=== PATIENT | male | born 1975 | race Caucasian/White ===

== ENCOUNTER 2017-05-02 16:35 | Emergency (ER) | payer SELFPAY ==
[2017-05-02] MEDS ORDERED: Tetracaine 0.5% OPTH.SOL 4 ML* 1 DROP BTL RIGHT EYE ONE (16:41)
[2017-05-02] MEDS ORDERED: BSS OPTH.SOL* BTL OPHTHALMIC ONE (16:42)
[2017-05-02] MEDS ORDERED: Fluorescein Sodium TOPICAL* 1 MG TEST OPHTHALMIC ONE (16:43)
[2017-05-02 16:46] VITALS: BP 111/71
--- NOTE | 2017-05-02 16:48 | UC ---
Eye Complaint HPI - HPI Summary HPI Summary: patient was doing some work around the house, felt something in his eye, flushed it out, but still has a constant irritation in the right eye. - History of Current Complaint Stated Complaint: RIGHT EYE Time Seen by Provider: 05/02/17 16:37 Hx Obtained From: Patient Onset/Duration: Sudden Onset, Lasting Days Timing: Constant Severity Initially: Severe Severity Currently: Moderate Location of Injury: Sclera Character: Dull, Foreign Body Sensation Aggravating Factor(s): Light, Eye Drops Alleviating Factor(s): Nothing Associated Signs And Symptoms: Positive: Negative, Drainage (Clear) Related History: Foreign Body - Risk Factors Penetrating Injury Risk Factor: Projectile Globe Rupture Risk Factors: Negative Acute Glaucoma Risk Factors: Eye Inflammation Optic Artery Occlusion Risk Factors: Negative - Allergies/Home Medications Allergies/Adverse Reactions: Allergies Allergy/AdvReac Type Severity Reaction Status Date / Time LOCAL ANESTHETIC Allergy Intermediate Vomiting Uncoded 05/02/17 16:46 Home Medications: Home Medications Levocetirizine Dihydrochloride [Xyzal Allergy 24Hr] 5 mg PO DAILY 05/02/17 [ History Confirmed 05/02/17] PMH/Surg Hx/FS Hx/Imm Hx Previously Healthy: Yes - Surgical History Surgical History: Yes Surgery Procedure, Year, and Place: APPENDECTOMY, LEFT KNEE AND LEFT SHOULDER ARTHOSCOPY, heart cath that was negative - Family History Known Family History: Positive: Other - positive [facility] for arthralgia - Social History Alcohol Use: Rare Substance Use Type: None Smoking Status (MU): Light Every Day Tobacco Smoker Type: Cigarettes Amount Used/How Often: 1/4 ppd Review of Systems Constitutional: Negative Skin: Negative Eyes: Drainage, Eye Redness, Photophobia ENT: Negative Respiratory: Negative Cardiovascular: Negative Gastrointestinal: Negative Genitourinary: Negative Motor: Negative Neurovascular: Negative Musculoskeletal: Negative Neurological: Negative Psychological: Negative All Other Systems Reviewed And Are Negative: Yes Physical Exam Triage Information Reviewed: Yes Appearance: Well-Appearing, Well-Nourished, Pain Distress Vital Signs Reviewed: Yes Eye Exam: Normal ENT Exam: Normal Dental Exam: Normal Neck exam: Normal Respiratory Exam: Normal Cardiovascular Exam: Normal Cardiovascular: Positive: RRR, No Murmur, Pulses Normal Abdominal Exam: Normal Bowel Sounds: Positive: Present Musculoskeletal Exam: Normal Neurological Exam: Normal Psychological Exam: Normal Skin Exam: Normal Eye Complaint Course/Dx - Course Course Of Treatment: hx obtained, exam performed ,meds reviewed, eye exam performed small corneal abraision noted, abx prescribed. - Differential Dx/Diagnosis Differential Diagnosis/HQI/PQRI: Corneal Abrasion, Penetrating Injury, Periorbital Cellulitis, Orbital Cellulitis Provider Diagnoses: corneal abrasion of right eye Discharge - Discharge Plan Condition: Stable Disposition: HOME Prescriptions: Erythromycin OPHTH.OINT* [Ilotycin OPHTH.OINT*] 1 applic RIGHT EYE TID #1 tube Patient Education Materials: Corneal Abrasion (ED) Additional Instructions: 1. use the eye cream as prescribed. 2.if not improving follow up with Dr Mayes.
== END 2017-05-02 17:17 | disposition home or self-care (01) ==
LOC: UCCORT 16:35
DX: S05.01XA Injury of conjunctiva and corneal abrasion without foreign body, right eye, initial encounter (principal); Z72.0 Tobacco use
CPT/HCPCS: 99212; A9270-GY; G0463

== ENCOUNTER 2017-05-03 18:17 | Emergency (ER) | payer SELFPAY ==
--- NOTE | 2017-05-03 18:52 | UC ---
Eye Complaint HPI - HPI Summary HPI Summary: 41 YEAR OLD MALE RETURNS WITH COMPLAINS OF SEVERE RIGHT EYE PAIN/DECREASED VISION. I WILL SEND HIM TO [facility]. - History of Current Complaint Stated Complaint: EYE PAIN Time Seen by Provider: 05/03/17 18:51 - Allergies/Home Medications Allergies/Adverse Reactions: Allergies Allergy/AdvReac Type Severity Reaction Status Date / Time LOCAL ANESTHETIC Allergy Intermediate Vomiting Uncoded 05/03/17 19:00 Home Medications: Home Medications Acetaminophen [Eq Acetaminophen] 1,000 mg PO Q8H PRN 05/03/17 [History Confirmed 05/03/17] PMH/Surg Hx/FS Hx/Imm Hx - Surgical History Surgical History: Yes Surgery Procedure, Year, and Place: APPENDECTOMY, LEFT KNEE AND LEFT SHOULDER ARTHOSCOPY, heart cath that was negative - Family History Known Family History: Positive: Other - positive [facility] for arthralgia - Social History Alcohol Use: Rare Substance Use Type: None Smoking Status (MU): Light Every Day Tobacco Smoker Type: Cigarettes Amount Used/How Often: 1/4 ppd Length of Time of Smoking/Using Tobacco: since age 16 Review of Systems Constitutional: Negative Skin: Negative Eyes: Blurred Vision, Photophobia ENT: Negative Respiratory: Negative Cardiovascular: Negative Gastrointestinal: Negative Genitourinary: Negative Motor: Negative Neurovascular: Negative Musculoskeletal: Negative Neurological: Negative Psychological: Negative All Other Systems Reviewed And Are Negative: Yes Physical Exam Triage Information Reviewed: Yes Eye Exam: Normal Eyes: Positive: Conjunctiva Inflamed Dental Exam: Normal Neck exam: Normal Neck: Positive: 1 Respiratory Exam: Normal Cardiovascular Exam: Normal Abdominal Exam: Normal Musculoskeletal Exam: Normal Neurological Exam: Normal Psychological Exam: Normal Skin Exam: Normal Eye Complaint Course/Dx - Differential Dx/Diagnosis Provider Diagnoses: CHANGE OF VISION. RIGHT EYE PAIN. RIGHT EYE PHOTOPHOBIA Discharge - Discharge Plan Condition: Stable Disposition: HOME Patient Education Materials: Blurred Vision (ED) Referrals: No Primary Care Phys,NOPCP [Primary Care Provider] -
[2017-05-03 19:08] VITALS: BP 119/72
== END 2017-05-03 19:32 | disposition home or self-care (01) ==
LOC: UCCORT 18:17
DX: H53.9 Unspecified visual disturbance (principal); H57.11 Ocular pain, right eye; H53.141 Visual discomfort, right eye; Z72.0 Tobacco use
CPT/HCPCS: 99213; G0463

== ENCOUNTER 2019-01-07 16:56 | Emergency (ER) | payer SELFPAY ==
[2019-01-07 17:35] VITALS: BP 125/80
--- NOTE | 2019-01-07 17:55 | UC ---
Shoulder Pain HPI - HPI Summary HPI Summary: 43-year-old male comes in with a chief complaint of right shoulder pain. Patient woke up with pain 3 days ago. It's in the upper posterior chest and the trapezius muscle area over the scapula. He noticed some bruising on the skin there and pain. Pain is worse with range of motion of the shoulder. Denies any neck pain. Denies any weakness. Occasionally he is getting some tingling down the right arm into the hand. No known trauma. No shortness of breath or fevers. The bruising rash is gone away. It never had any vesicles or drainage. Ibuprofen was initially helping with the pain but is no longer helping. When he moves the shoulder he does feel some crackling in the muscles. - History of Current Complaint Chief Complaint: UCUpperExtremity Stated Complaint: RT SHOULDER COMPLAINT Time Seen by Provider: 01/07/19 17:34 Pain Intensity: 8 - Allergies/Home Medications Allergies/Adverse Reactions: Allergies Allergy/AdvReac Type Severity Reaction Status Date / Time LOCAL ANESTHETIC Allergy Intermediate Vomiting Uncoded 01/07/19 17:25 Home Medications: Home Medications Ibuprofen TAB* [Motrin TAB* 800 MG] 800 mg PO Q6H PRN 01/07/19 [History Confirmed 01/07/19] PMH/Surg Hx/FS Hx/Imm Hx Previously Healthy: Yes - Surgical History Surgical History: Yes Surgery Procedure, Year, and Place: APPENDECTOMY, LEFT KNEE AND LEFT SHOULDER ARTHOSCOPY, heart cath that was negative - Family History Known Family History: Positive: Other - positive [facility] for arthralgia - Social History Alcohol Use: Rare Substance Use Type: None Smoking Status (MU): Light Every Day Tobacco Smoker Type: Cigarettes Amount Used/How Often: 1/4 ppd Length of Time of Smoking/Using Tobacco: since age 16 Review of Systems All Other Systems Reviewed And Are Negative: Yes Constitutional: Positive: Negative Skin: Positive: Rash Eyes: Positive: Negative ENT: Positive: Negative Respiratory: Positive: Negative Cardiovascular: Positive: Negative Gastrointestinal: Positive: Negative Motor: Positive: Negative Neurovascular: Positive: Negative Musculoskeletal: Positive: Other: - SEE HPI Neurological: Positive: Numbness Psychological: Positive: Negative Is Patient Immunocompromised?: No Physical Exam Triage Information Reviewed: Yes Appearance: Well-Appearing, Well-Nourished, Pain Distress - MILD WITH RT SHOULDER ROM Vital Signs: Initial Vital Signs Temp 100.1 F 01/07/19 17:28 Pulse 76 01/07/19 17:28 Resp 16 01/07/19 17:28 BP 125/80 01/07/19 17:28 Pulse Ox 100 01/07/19 17:28 Vital Signs Reviewed: Yes Eye Exam: Normal Eyes: Positive: Conjunctiva Clear Neck exam: Normal Neck: Positive: Supple, Nontender Respiratory: Positive: Lungs clear, Normal breath sounds, No respiratory distress Cardiovascular: Positive: RRR Musculoskeletal: Positive: Other: - Radial pulses normal bilaterally. Normal capillary refill in the hands. No sensation deficit in the arms. Fingers wrists and elbows have full range of motion with strength 5 out of 5. Shoulder extension 90 on the right 160 on the left. Abduction 70 on the right 150 on the left. Internal rotation T6 on the left T12 on the right. Neurological Exam: Normal Neurological: Positive: Alert, Muscle Tone Normal Psychological Exam: Normal Psychological: Positive: Age Appropriate Behavior Skin Exam: Normal Skin: Negative: Rashes Shoulder Course/Dx - Course Course Of Treatment: Patient Name: ROMMEL LAWSON Medical Record#: [id number] Ordering Physician: Chung Michael MD Acct.#: [id number] : 1975 Age: 43 Sex: M Location: [facility] Exam Date: 01/07/191747 ADM Status: REG ER Order Information: SHOULDER RIGHT 2+ VWS Accession Number: [id number] CPT: 03535 INDICATION: Right shoulder pain. TECHNIQUE: 4 views of the right shoulder were obtained. FINDINGS: The bones are in normal alignment. No fracture is seen. Joint spaces appear maintained. IMPRESSION: NO EVIDENCE OF FRACTURE. <Electronically signed by Eleuterio Bojorquez MD in OV> 01/07/191817 Order Information: CHEST PA LAT 2 VWS Accession Number: [id number] CPT: 22930 INDICATION: Right upper chest pain. COMPARISON: There are no relevant prior studies available for comparison. TECHNIQUE: Dual-energy PA and lateral views of the chest were obtained. FINDINGS: The heart is within normal limits in size. Mediastinal and hilar contours appear within normal limits. The lungs are slightly hyperinflated and clear. No pneumothorax or pleural effusion is seen. IMPRESSION: NO EVIDENCE FOR ACTIVE CARDIOPULMONARY DISEASE. I discussed the x-rays with the patient. Patient will continue ibuprofen. I recommended ice. Patient reports that when he holds the arm close to him it does help decrease the pain and therefore nursing here gave him a sling and is neurovascularly intact after placement of the sling. We did discuss discussed getting his arm out of the sling as much as possible and doing range of motion to avoid frozen shoulder. Also prescription for Flexeril and [place] to be used as needed. Plan is to follow-up with orthopedics or sports medicine. - Differential Dx/Diagnosis Provider Diagnosis: Right shoulder pain Discharge - Sign-Out/Discharge Documenting (check all that apply): Patient Departure All imaging exams completed and their final reports reviewed: Yes - Discharge Plan Condition: Stable Disposition: HOME Prescriptions: Cyclobenzaprine TAB* [Flexeril 10 MG TAB*] 10 mg PO TID PRN #15 tab MDD 3 PRN Reason: Pain HYDROcodone/ACETAMIN 5-325 MG* [[place] 5-325 TAB*] 1 tab PO Q4H PRN #30 tab MDD 6 PRN Reason: Pain Patient Education Materials: Shoulder Pain (ED) Referrals: Aureliano Ta MD [Medical Doctor] - [facility] [Provider Group] Additional Instructions: FOLLOW UP WITH ORTHOPEDICS OR SPORTS MEDICINE. CONTINUE RANGE OF MOTION EXERCISES TO AVOID FROZEN SHOULDER. GET REEVALUATED SOONER FOR ANY WORSENING OF YOUR CONDITION OR ANY QUESTIONS OR CONCERNS. - Billing Disposition and Condition Condition: STABLE Disposition: Home
== END 2019-01-07 18:45 | disposition home or self-care (01) ==
LOC: UCCORT 16:56
DX: M25.511 Pain in right shoulder (principal); F17.210 Nicotine dependence, cigarettes, uncomplicated; Z88.7 Allergy status to serum and vaccine
CPT/HCPCS: 71046; 99213; G0463

== ENCOUNTER 2019-07-11 16:53 | Emergency (ER) | payer SELFPAY ==
[2019-07-11 17:15] VITALS: BP 115/84
--- NOTE | 2019-07-11 18:02 | UC ---
Shoulder Pain HPI - HPI Summary HPI Summary: 44-year-old male presents with 2 day history of non-traumatic left shoulder pain. States pain is located in the anterior shoulder and occasionally radiates to the back of the shoulder as well. Pain worsens with movement particularly with abduction and internal rotation. Has taken acetaminophen and ibuprofen with some mild improvement in pain. States sometimes feels some "crunching" in the shoulder when he moves it. Beginning last night he started with some intermittent numbness and tingling down the ulnar aspect of his arm and hand. Reports a previous dislocation injury to that shoulder 20 years ago that required arthroscopic surgery. Denies fever, chills, ecchymosis, erythema , edema, chest pain, shortness of breath, abdominal pain, nausea, or vomiting. - History of Current Complaint Chief Complaint: UCUpperExtremity Stated Complaint: LEFT SHOULDER PAIN Time Seen by Provider: 07/11/19 17:53 Hx Obtained From: Patient Pain Intensity: 4 - Allergies/Home Medications Allergies/Adverse Reactions: Allergies Allergy/AdvReac Type Severity Reaction Status Date / Time LOCAL ANESTHETIC Allergy Intermediate Vomiting Uncoded 07/11/19 17:12 PMH/Surg Hx/FS Hx/Imm Hx Previously Healthy: Yes - Denies significant PMH - Surgical History Surgical History: Yes Surgery Procedure, Year, and Place: APPENDECTOMY, LEFT KNEE AND LEFT SHOULDER ARTHOSCOPY, heart cath that was negative - Family History Known Family History: Positive: Non-Contributory - Social History Occupation: Employed Full-time Lives: With Family Alcohol Use: Rare Substance Use Type: None Smoking Status (MU): Light Every Day Tobacco Smoker Type: Cigarettes Amount Used/How Often: 1/4 ppd Length of Time of Smoking/Using Tobacco: since age 16 Review of Systems All Other Systems Reviewed And Are Negative: Yes Constitutional: Negative: Fever, Chills Skin: Negative: Rash Respiratory: Positive: Negative Cardiovascular: Positive: Negative Gastrointestinal: Positive: Negative Genitourinary: Positive: Negative Motor: Negative: Weakness Neurovascular: Positive: Decreased Sensation Musculoskeletal: Positive: Arthralgia - See HPI Neurological: Positive: Negative Is Patient Immunocompromised?: No Physical Exam - Summary Physical Exam Summary: GENERAL APPEARANCE: Well developed, well nourished, alert and cooperative, and appears to be in no acute distress. NECK: Neck supple, non-tender. CARDIAC: Normal S1 and S2. No S3, S4 or murmurs. Rhythm is regular. There is no peripheral edema, cyanosis or pallor. Extremities are warm and well perfused. Capillary refill is less than 2 seconds. Peripheral pulses intact. LUNGS: Clear to auscultation without rales, rhonchi, wheezing or diminished breath sounds. ABDOMEN: Positive bowel sounds. Soft, nondistended, nontender. No guarding or rebound. No masses or hepatosplenomegally. MUSKULOSKELETAL: Normal muscular development. Normal gait. EXTREMITIES: Tenderness of the left shoulder over the acromion without gross deformity, erythema, edema, or ecchymosis. Full ROM although reports pain with abduction and external rotation. Circulation and sensation intact. SKIN: Skin normal color, texture and turgor with no lesions or eruptions. Triage Information Reviewed: Yes Vital Signs: Initial Vital Signs Temp 98.3 F 07/11/19 17:08 Pulse 82 07/11/19 17:08 Resp 16 07/11/19 17:08 BP 115/84 07/11/19 17:08 Pulse Ox 100 07/11/19 17:08 Vital Signs Reviewed: Yes Diagnostics - Radiology No standard instances Radiology Interpretation Completed By: Radiologist Summary of Radiographic Findings: SHOULDER LEFT 2+ VWS. FINDINGS: The adequately corticated bones are in normal alignment. Joint spaces appear maintained. No fracture, dislocation or focal bony abnormality is seen. IMPRESSION: Normal radiograph of the left shoulder Shoulder Course/Dx - Course Course Of Treatment: 44-year-old male presents with 2 day history of non-traumatic left shoulder pain. States pain is located in the anterior shoulder and occasionally radiates to the back of the shoulder as well. Pain worsens with movement particularly with abduction and internal rotation. Has taken acetaminophen and ibuprofen with some mild improvement in pain. States sometimes feels some "crunching" in the shoulder when he moves it. Beginning last night he started with some intermittent numbness and tingling down the ulnar aspect of his arm and hand. Reports a previous dislocation injury to that shoulder 20 years ago that required arthroscopic surgery. Denies fever, chills, ecchymosis, erythema , edema, chest pain, shortness of breath, abdominal pain, nausea, or vomiting. Afebrile. Vital signs stable. Patient hand tenderness of the left shoulder over the acromion without gross deformity, erythema, edema, or ecchymosis. Full ROM although reports pain with abduction and external rotation. Circulation and sensation intact. X-ray of the shoulder was normal. Reviewed results with the patient. Recommending conservative treatment for acute left shoulder pain including use of NSAIDs and RICE. He is to follow-up with orthopedic surgery in 7 days if symptoms are not improving. Anticipatory guidance and warning symptoms were reviewed with the patient. Verbalizes understanding and agrees with plan of care. - Differential Dx/Diagnosis Differential Diagnosis/HQI/PQRI: Arthritis, Bursitis, Rotator Cuff Injury, Sprain, Strain, Thoracic Outlet Syndrome Provider Diagnosis: Acute pain of left shoulder Discharge ED - Sign-Out/Discharge Documenting (check all that apply): Patient Departure All imaging exams completed and their final reports reviewed: Yes - Discharge Plan Condition: Stable Disposition: HOME Prescriptions: Naproxen [Naproxen 500 mg tab] 500 mg PO Q12HR #30 tablet Patient Education Materials: Shoulder Pain (ED) Referrals: No Primary Care Phys,NOPCP [Primary Care Provider] - Edd Ambrocio MD [Medical Doctor] - Additional Instructions: The x-ray performed in the clinic today showed no evidence of a fracture. Rest the shoulder as much as possible. You should perform gentle range of motion exercises several times a day to help prevent the should from freezing up. Apply ice to the affected area for 15-20 minutes at least 4 times a day to help with the pain and swelling. Take naproxen 500 mg 1 tab every 12 hours with food for next 5-7 days then may take every 12 hour as needed for pain. Follow up with orthopedic surgery in 7 days if symptoms do not improve. Call for important. Seek immediate medical attention if you have severe pain not managed with pain medication, you lose function of the arm, or have any worsening of symptoms. - Billing Disposition and Condition Condition: STABLE Disposition: Home
== END 2019-07-11 18:36 | disposition home or self-care (01) ==
LOC: UCCORT 16:53
DX: M25.512 Pain in left shoulder (principal); Z88.7 Allergy status to serum and vaccine; F17.210 Nicotine dependence, cigarettes, uncomplicated
CPT/HCPCS: 99212; G0463